=== PATIENT | male | born 2000 | race African-American/Black ===

== ENCOUNTER 2021-09-25 20:40 | Emergency (ER) | payer SELFPAY ==
[2021-09-25] MEDS ORDERED: CEFAZOLIN 1 GM VIAL ONE (21:11)
[2021-09-25] MEDS ORDERED: Bacitracin 1 PK ONE (21:43)
== END 2021-09-25 22:16 | disposition home or self-care (01) ==
LOC: ERS 20:40
DX: S81.031A Puncture wound without foreign body, right knee, initial encounter (principal); W34.00XA Accidental discharge from unspecified firearms or gun, initial encounter; Z23 Encounter for immunization
CPT/HCPCS: 96374; G0390; J0690